=== PATIENT | female | born 1965 | race Caucasian/White ===

== ENCOUNTER 2024-10-23 11:13 | Outpatient (CLI) | payer BC, SELFPAY ==
--- NOTE | 2024-10-23 11:28 | XR_ITS ---
WS: [id number] Right shoulder, 3 views, 10/23/2024 Clinical Data: ACUTE PAIN OF RIGHT SHOULDER Comparison: None. Findings: No fractures or dislocations are seen. The AC joint is normal. The adjacent right clavicle, right sca pula and ribs are normal. The soft tissues are unremarkable. XR/XR shoulder RT min 2V* [id number] Impression: Negative right shoulder.
--- NOTE | 2024-10-23 11:28 | XR_ITS ---
WS: [id number] Thoracic spine, 3 views, 10/23/2024 Clinical Data: RIGHT SIDED THORACIC BACK PAIN Comparison: None. Findings: No compression fractures are seen. The disc heights are normal. The paravertebral regions are normal. The diaphragms are flattened. XR/XR thoracic spine 2V [id number] Impression: Negative thoracic spine.
== END 2024-10-23 11:14 | disposition home or self-care (01) ==
LOC: RAD 11:24
PROVIDERS: PCP Nurse Practitioner Family; Visit Provider Nurse Practitioner Family
DX: M54.6 Pain in thoracic spine (principal); M25.511 Pain in right shoulder
CPT/HCPCS: 72070; 73030

== ENCOUNTER 2024-11-05 12:51 | Outpatient (CLI) | payer BC, SELFPAY ==
--- NOTE | 2024-11-05 13:00 | MR_ITS ---
WS: [id number] MRI CERVICAL SPINE NONCONTRAST TECHNIQUE: Sagittal T1, T2 and STIR imaging. Axial T2, gradient, and fiesta imaging. CLINICAL INFORMATION: Chronic Cervical readioulopathy COMPARISON: None. FINDINGS: Straightening with slight reversal of the normal cervical lordosis. Mild spondylotic changes. Small a mount of hazy chronic appearing myelomalacia in the cervical cord at C4. No significant cord atrophy. Mild facet arthropathy. Cord signal is otherwise normal. C2-C3: Mild facet arthropathy. C3-C4: Mild facet arthropathy. Uncovertebral joint hypertrophy. Mild LEFT greater than RIGHT foramina l narrowing. C4-C5: Disc osteophyte complex with endplate ridging. Uncovertebral joint hypertrophy. Moderate to se ras bilateral bony foraminal narrowing. C5-C6: Disc osteophyte complex with mild central canal stenosis. Moderate bilateral bony foraminal na rrowing. C6-C7: Disc osteophyte complex with endplate ridging. Severe RIGHT and mild LEFT bony foraminal narro wing. Mild facet arthropathy. Mild central canal stenosis. C7-T1: Mild LEFT and no significant RIGHT foraminal narrowing. Spinal canal is patent. Visualized brain stem structures: Normal. Prevertebral soft tissues: Normal. Incidental cerebellar tonsillar ectopia. Small vessel changes in the tasha. MR/MR cervical spin wo con* [id number] IMPRESSION: 1. Mild central canal stenosis C4-C6. 2. Moderate to severe bilateral C4-5 and RIGHT C6-7 bony foraminal narrowing. 3. Moderate bilateral C5-6 bony foraminal narrowing. 4. Mild LEFT C7-T1 bony foraminal narrowing. 5. Small amount of chronic myelomalacia in the cervical cord at C4.
== END 2024-11-05 12:52 | disposition home or self-care (01) ==
PROVIDERS: PCP Nurse Practitioner Family; Visit Provider Nurse Practitioner Family
DX: M54.12 Radiculopathy, cervical region (principal); M48.02 Spinal stenosis, cervical region; G95.89 Other specified diseases of spinal cord; M47.892 Other spondylosis, cervical region; M25.78 Osteophyte, vertebrae; R93.89 Abnormal findings on diagnostic imaging of other specified body structures
CPT/HCPCS: 72141